=== PATIENT | male | born 2000 | race Hispanic/Latino ===

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

== ENCOUNTER 2021-12-26 14:20 | Inpatient (IN) | payer OTHER ==
[~2021-12-26] VITALS: Ht 160 cm; Wt 49.9 kg
[2021-12-26] MEDS ORDERED: ACETAMINOPHEN WITH CODEINE 1 TAB TAB PO ONE (15:00)
[2021-12-26] MEDS ORDERED: ALBUTEROL 0.083% 2.5 MG/3 ML INH IH ONE ×2 (15:00→15:04)
[2021-12-26] MEDS ORDERED: 0.9%NACL 1000ML 1,000 ML IV SCH (15:00)
[2021-12-26] MEDS ORDERED: CEFTRIAXONE 1G VIAL IVP ONE (15:00)
[2021-12-26] MEDS ORDERED: AZITHROMYCIN 250 MG TABLET PO ONE (15:00)
[2021-12-26] MEDS ORDERED: IPRATROPIUM/ALBUTEROL SULFATE 3 ML SOLUTION IH ONE ×2 (15:00→15:04)
[2021-12-26 15:15] LABS: BASOPHILS % (AUTO) 0.6 % (0.0-5.0); EOSINOPHILS % (AUTO) 0.2 % (0.0-8.0); HEMATOCRIT 43.4 % (42-54); LYMPHOCYTES % (AUTO) 11.4 % (21.0-51.0); MEAN CORPUSCULAR HEMOGLOBIN 30.1 pg (27.0-33.0); MEAN CORPUSCULAR HGB CONC 35.3 g/dL (32.0-36.0); MEAN CORPUSCULAR VOLUME 85.3 fL (80-100); MONOCYTES % (AUTO) 6.8 % (3.0-13.0); NEUTROPHILS % (AUTO) 80.3 % (40.0-77.0); PLATELET COUNT (AUTO) 251 K/uL (130-400); RED BLOOD CELL COUNT(AUTO) 5.09 MIL/uL (4.50-6.20); WHITE BLOOD COUNT (AUTO) 19.1 K/uL (4.8-10.8)
[2021-12-26 15:25] LABS: POTASSIUM 3.6 mmol/L (3.5-5.1)
[2021-12-26 15:29] LABS: ALBUMIN 3.6 g/dL (3.5-5.0); BILIRUBIN,TOTAL 1.4 mg/dL (0.2-1.0); TOTAL PROTEIN, SERUM 7.5 g/dL (6.0-8.3)
[2021-12-26] MEDS ORDERED: ONDANSETRON 4MG INJ IV PRN (17:30)
[2021-12-26] MEDS ORDERED: ACETAMINOPHEN 325 MG TAB PO PRN ×2 (17:30)
[2021-12-26] MEDS ORDERED: MORPHINE 2 MG SYG IV PRN (17:30)
[2021-12-26] MEDS ORDERED: AZITHROMYCIN 500MG+NS 250ML IVPB SCH (17:30)
[2021-12-26 17:55] LABS: INR 1.05 (0.85-1.15); PROTHROMBIN TIME 11.4 SEC (9.6-11.6)
[2021-12-26 17:57] LABS: PARTIAL THROMBOPLASTIN TIME 31.6 SEC (26.3-35.5)
[2021-12-26] MEDS: 0.9%NACL 1000ML 1,000 ML IV SCH (18:29)
[2021-12-26] MEDS: CEFTRIAXONE 1G VIAL IV SCH (21:00)
[2021-12-26] MEDS: FAMOTIDINE 20MG VIAL IV SCH (21:02)
[2021-12-26 22:00] VITALS: BP 109/64
[2021-12-26] MEDS ORDERED: GUAIFENESIN-DM 200/20 MG 10 ML PO PRN (23:30)
[2021-12-27] VITALS: BP 108/59
[2021-12-27] MEDS: SOLU-MEDROL 125MG VIAL IVP SCH ×3 (00:02→12:05)
[2021-12-27 00:08] LABS: ABG BASE EXCESS -0.5 mmol/L (-2.0-3.0); ABG HCO3 23.6 mmol/L (21.0-28.0); ABG OXYGEN SATURATION 92.6 % (95.0-99.0); ABG PCO2 37 mmHg (35-48)
[2021-12-27] MEDS: IPRATROPIUM/ALBUTEROL SULFATE 3 ML SOLUTION IH SCH ×4 (00:16→17:02)
[2021-12-27 03:49] LABS: BASOPHILS % (AUTO) 0.3 % (0.0-5.0); EOSINOPHILS % (AUTO) 0.1 % (0.0-8.0); HEMATOCRIT 38.7 % (42-54); LYMPHOCYTES % (AUTO) 6.5 % (21.0-51.0); MEAN CORPUSCULAR HEMOGLOBIN 29.7 pg (27.0-33.0); MEAN CORPUSCULAR HGB CONC 35.1 g/dL (32.0-36.0); MEAN CORPUSCULAR VOLUME 84.5 fL (80-100); MONOCYTES % (AUTO) 1.6 % (3.0-13.0); NEUTROPHILS % (AUTO) 90.8 % (40.0-77.0); PLATELET COUNT (AUTO) 250 K/uL (130-400); RED BLOOD CELL COUNT(AUTO) 4.58 MIL/uL (4.50-6.20); RED CELL DISTRIBUTION WIDTH 12.2 % (11.0-15.5); WHITE BLOOD COUNT (AUTO) 11.6 K/uL (4.8-10.8)
[2021-12-27 04:00] VITALS: BP 110/60
[2021-12-27] MEDS: 0.9%NACL 1000ML 1,000 ML IV SCH (04:19)
[2021-12-27 06:01] LABS: ERYTHROCYTE SEDIMENTATION RATE 56 MM/HR (0-15)
[2021-12-27 08:00] VITALS: BP 112/65
[2021-12-27] MEDS: CEFTRIAXONE 1G VIAL IV SCH (08:57)
[2021-12-27] MEDS: FAMOTIDINE 20MG VIAL IV SCH (08:57)
[2021-12-27] MEDS ORDERED: ENOXAPARIN SODIUM 30 MG/0.3 ML SQ SCH (09:00)
[2021-12-27 12:02] VITALS: BP 114/59
[2021-12-27 16:00] VITALS: BP 129/66
[2021-12-27] MEDS ORDERED: 0.9% NACL 250ML 250 ML ONE (16:36)
[2021-12-29] MEDS ORDERED: ALBU8.5H8 IH (00:26)
[2021-12-29] MEDS ORDERED: D-ME118S47 PO (00:26)
[2021-12-29] MEDS ORDERED: DOXY-336 PO (00:26)
== END 2021-12-27 19:00 | disposition left against medical advice (07) | DRG 193 ==
LOC: EDH 14:20 → EDHIP 14:21 → 4BH 21:03
PROVIDERS: ADMIT Hospitalist; ATTEND Hospitalist
DX: J18.9 Pneumonia, unspecified organism (principal); J96.01 Acute respiratory failure with hypoxia; Z20.822 Contact with and (suspected) exposure to COVID-19; Z53.29 Procedure and treatment not carried out because of patient's decision for other reasons; F17.210 Nicotine dependence, cigarettes, uncomplicated; F12.90 Cannabis use, unspecified, uncomplicated
CPT/HCPCS: 36415; 36600; 71045; 80053; 82803; 83605; 84145; 85025; 85610; 85651; 85730; 86701; 87071; 87205; 87390; 87635; 87804; 87880; 94640; 94664; 94760; C9803; G0378; J0456; J0696; J1650; J2930; J3490; J7030; J7050